=== PATIENT | female | born 1945 | race Two or more races ===

== ENCOUNTER 2017-02-08 14:51 | Inpatient (IN) | payer MEDICARE, OTHER ==
[~2017-02-08] VITALS: Ht 157.5 cm; Wt 77.1 kg
--- NOTE | 2017-02-08 14:58 | NUR ---
PT BIB PA FOR PSYCH EVAL, C/O HI STATING "I WANT TO KILL MY ROOMMATE". DENIES SI. 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 NAD NOTED. RESP EVEN UNLABORED. ABLE TO STAND AND PIVOT FOR TRANSFER FROM GURNEY TO BED. A/OX4. IN ER BED 11.
--- NOTE | 2017-02-08 15:01 | NUR ---
PLACED ON BEDPAN
--- NOTE | 2017-02-08 15:21 | NUR ---
URINE SAMPLE OBTAINED BY IN AND OUT CATH
--- NOTE | 2017-02-08 15:46 | NUR ---
PT RESTING COMFORTABLY, NAD NOTED. ALL NEEDS ATTENDED TO. MD NOTIFIED OF HYPERTENSION.
[2017-02-08 15:48] LABS: BASOPHILS # (AUTO) 0.1 /CMM (0.0-0.2); BASOPHILS % (AUTO) 0.5 % (0.0-2.0); EOSINOPHILS # (AUTO) 0.2 /CMM (0.0-0.7); EOSINOPHILS % (AUTO) 2.1 % (0.0-6.0); HEMATOCRIT 32 % (33-45); HEMOGLOBIN 11.1 g/dL (11.5-14.8); LYMPHOCYTES # (AUTO) 2.1 /CMM (0.8-4.8); LYMPHOCYTES % (AUTO) 19.6 % (20.0-44.0); MEAN CORPUSCULAR HEMOGLOBIN 32 PG (26.0-33.0); MEAN CORPUSCULAR HGB CONC 35 g/dl (31.0-36.0); MEAN CORPUSCULAR VOLUME 90 fL (82-100); MONOCYTES # (AUTO) 0.9 /CMM (0.1-1.30); MONOCYTES % (AUTO) 8.8 % (2.0-12.0); NEUTROPHILS # (AUTO) 7.2 /CMM (1.8-8.9); PLATELET COUNT (AUTO) 205 /CMM (150-450); RDW COEFFICIENT OF VARIATION 12.8 (11.5-15.0); RED BLOOD CELL COUNT(AUTO) 3.51 MIL/uL (4.0-5.2); WHITE BLOOD COUNT (AUTO) 10.5 K/uL (4.3-11.0)
[2017-02-08 15:52] LABS: APPEARANCE,URINE Clear (CLEAR); BILIRUBIN,URINE Negative (NEGATIVE); BLOOD, URINE Small Ery/uL (NEGATIVE); COLOR,URINE Yellow (YELLOW); KETONES,URINE Negative (NEGATIVE); LEUKOCYTE ESTERASE ,URINE Negative (NEGATIVE); NITRITE, URINE Negative (NEGATIVE); PH,URINE 5.5 (5.0-8.0); PROTEIN,URINE 100 mg/dl (NEGATIVE); UGLUCOSE Negative (NEGATIVE); UROBILINOGEN,URINE 0.2 EU/dL (0.2)
[2017-02-08 16:00] LABS: ADD URINE CULTURE NO; BACTERIA,URINE None seen /HPF (None Seen); RBC,URINE 0-2 /HPF (0-2); SQUAMOUS EPITHELIAL CELL,UR Few /HPF (None Seen); WBC,URINE 0-2 /HPF (0-3)
--- NOTE | 2017-02-08 16:02 | NUR ---
REPORT GIVEN TO GABRIELLE HERNÁNDEZ FOR ADMISSION
[2017-02-08 16:04] LABS: ALANINE AMINOTRANSFERASE 23 U/L (12-78); ALBUMIN 3.5 g/dL (3.4-5.0); ALKALINE PHOSPHATASE 75 U/L (46-116); ASPARTATE AMINOTRANSFERASE 19 U/L (15-37); BILIRUBIN,DIRECT 0.1 mg/dL (0.0-0.2); BILIRUBIN,TOTAL 0.2 mg/dL (0.2-1.0); CALCIUM, SERUM 8.6 mg/dL (8.5-10.1); CARBON DIOXIDE 28 mmol/L (21-32); CHLORIDE 97 mmol/L (98-107); CREATININE 1.1 mg/dL (0.6-1.3); GLUCOSE 123 mg/dL (74-106); POTASSIUM 4.9 mmol/L (3.5-5.1); SODIUM SERUM 130 mmol/L (136-145); TOTAL PROTEIN, SERUM 7.1 g/dL (6.4-8.2); UREA NITROGEN, BLOOD 21 mg/dL (7-18)
[2017-02-08 16:05] LABS: ACETAMINOPHEN 0 ug/ml (10-30); ALCOHOL, BLOOD < 3 mg/dL (0-0); SALICYLATE 0.9 mg/dL (2.8-20.0)
--- NOTE | 2017-02-08 16:05 | NUR ---
CALLED NOAH THOMASW FOR PSYCH EVAL ETA 30 MIN.
[2017-02-08 16:07] LABS: CANNABINOID, URINE NEGATIVE (NEGATIVE); PHENCYCLIDINE SCREEN,URINE NEGATIVE (NEGATIVE)
[2017-02-08] MEDS ORDERED: ACETAMINOPHEN ES 500 MG TABLET ONE (16:07)
[2017-02-08] MEDS ORDERED: LISINOPRIL (20MG) 20 MG TABLET PO SCH (16:30)
[2017-02-08] MEDS ORDERED: ACETAMINOPHEN ES 500 MG TABLET PO ONE (16:30)
[2017-02-08] MEDS ORDERED: PANT40TA2 PO (16:31)
[2017-02-08] MEDS ORDERED: ATOR20TA PO (16:31)
[2017-02-08] MEDS ORDERED: DOCU-170 PO (16:31)
[2017-02-08] MEDS ORDERED: LORA-258 PO (16:31)
[2017-02-08] MEDS ORDERED: CHOL400T28 PO (16:31)
[2017-02-08] MEDS ORDERED: LINA5TAB PO (16:31)
[2017-02-08] MEDS ORDERED: OXYB5TAB29 PO (16:31)
[2017-02-08] MEDS ORDERED: GABA300C PO (16:31)
[2017-02-08] MEDS ORDERED: ASPI81TA2 PO (16:31)
[2017-02-08] MEDS ORDERED: LISI-603 PO (16:31)
[2017-02-08] MEDS ORDERED: MEMA5TAB PO (16:31)
[2017-02-08] MEDS ORDERED: DONE5TAB3 PO (16:31)
[2017-02-08] MEDS ORDERED: RISP0.5T2 PO (16:31)
[2017-02-08] MEDS ORDERED: METF500T4 PO (16:31)
[2017-02-08] MEDS ORDERED: MULT1TAB11 PO (16:31)
[2017-02-08] MEDS ORDERED: INSU100V3 SQ (16:31)
--- NOTE | 2017-02-08 17:05 | NUR ---
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
--- NOTE | 2017-02-08 18:12 | NUR ---
PT TRANSPORTED TO [facility]-A IN STABLE CONDITION. ALL NEEDS ATTENDED TO. NAD NOTED.
[2017-02-08 18:20] VITALS: BP 188/76
--- NOTE | 2017-02-08 18:20 | NUR ---
received patient from er, v/s take, bp-188/76,p-73,r-19, o2-98 room air, skin assessment done, picture taken, pt refused sign paperwork, endorsed oncoming nurse for continuation of care.
[2017-02-08] MEDS ORDERED: MAG HYDROX/AL HYDROX/SIMETH 30 ML UDC PO PRN (19:30)
[2017-02-08] MEDS ORDERED: TEMAZEPAM 7.5 MG CAPSULE PO PRN (19:30)
[2017-02-08] MEDS ORDERED: ACETAMINOPHEN 325 MG TABLET PO PRN (19:30)
[2017-02-08] MEDS ORDERED: LORAZEPAM 0.5 MG TABLET PO PRN (19:30)
[2017-02-08] MEDS ORDERED: MAGNESIUM HYDROXIDE 30 ML UDC PO PRN (19:30)
[2017-02-08 19:49] VITALS: BP 160/78
--- NOTE | 2017-02-08 20:00 | NUR ---
NOTIFY DR. HURTADO ABOUT PT. SODIUM LEVEL 130 NO NEW ORDERS RECEIVED
[2017-02-08] MEDS ORDERED: INSULIN REGULAR, HUMAN 100 UNIT/ML 3 ML VIAL SQ PRN (22:00)
[2017-02-08] MEDS ORDERED: MEMANTINE HCL 5 MG TABLET ONE (22:39)
[2017-02-08] MEDS ORDERED: ATORVASTATIN 10 MG TABLET ONE (22:39)
[2017-02-08] MEDS: ATORVASTATIN 10 MG TABLET PO SCH (22:48)
[2017-02-08] MEDS: MEMANTINE HCL 5 MG TABLET PO SCH (22:48)
[2017-02-08 23:00] VITALS: BP 145/78
--- NOTE | 2017-02-08 23:00 | NUR ---
GPS RN NOTES ; LIPITOR 10 MG / NAMENDA 5 MG PO GIVEN CHARGE NURSE MADE AWARE
--- NOTE | 2017-02-09 00:11 | NUR ---
GPS RN ADMITTED NOTES ADMITTED THIS 71 Y/O FEMALE FROM [facility], PT. CAME TO THE UNIT VIA STRETCHER ACCOMPANIED VIA 2 PARAMEDICS PT. IS ON 5150 HOLD FOR DANGER TO OTHERS PER HOLD PT. VERBALLY THREATENED SHE WANTED HURT HER ROOMMATE AND OTHERS, . PT. WAS UNCOOPERATIVE COMBATIVE AGGRESSIVE ANXIOUS , MENTAL HX OF SCHIZOPHRENIA ANXIETY DEMENTIA , AND MEDICAL HX OF HTN DIABETES HYPERLIPIDEMIA GERD , SKIN ASSESSMENT DONE PHOTO TAKEN AND PLACED IN THE CHART , PT. REFUSED TO SIGN CONSENTS FORM, REFUSED TO MRSA SWAB, ENCOURAGED FOR MRSA PT. STILL REFUSED , BOTH MD AWARE OF NEW ADMISSION NEW ORDERS RECEIVED AND CARRIED OUT, REORIENT TO UNIT POLICES AND CONTRABAND CHECKS , ENCOURAGED PT. TO BE VERBALIZE FEELING AND CONCERN TO STAFF , WILL CONTINUE TO MONITOR FOR SAFETY AND BEHAVIOR .
[2017-02-09 07:37] LABS: ALBUMIN 3.1 g/dL (3.4-5.0); BILIRUBIN,TOTAL 0.3 mg/dL (0.2-1.0); CALCIUM, SERUM 8.5 mg/dL (8.5-10.1); CREATININE 1.1 mg/dL (0.6-1.3); POTASSIUM 4.8 mmol/L (3.5-5.1); TOTAL PROTEIN, SERUM 6.4 g/dL (6.4-8.2)
[2017-02-09] MEDS ORDERED: DEXTROSE 50%-WATER 50 ML DISP.SYRIN IV PRN (08:00)
[2017-02-09] MEDS: METFORMIN 500 MG TABLET PO SCH ×2 (08:15→16:30)
[2017-02-09] MEDS: ASPIRIN 81 MG TAB.CHEW PO SCH (08:15)
[2017-02-09] MEDS: MULTIVITAMINS W-MINERALS 1 TAB TABLET PO SCH (08:15)
[2017-02-09] MEDS: LINAGLIPTIN 5 MG TABLET PO SCH (08:15)
[2017-02-09] MEDS: DOCUSATE SODIUM 100 MG CAPSULE PO SCH (08:16)
[2017-02-09] MEDS: PANTOPRAZOLE 40 MG TABLET.DR PO SCH (08:16)
[2017-02-09] MEDS: GABAPENTIN 300 MG CAPSULE PO SCH ×2 (08:16→16:30)
[2017-02-09] MEDS: LISINOPRIL (20MG) 20 MG TABLET PO SCH (08:17)
[2017-02-09 08:20] VITALS: BP 154/84
[2017-02-09] MEDS: OXYBUTYNIN CHLORIDE ER 5 MG TAB PO SCH (09:13)
[2017-02-09] MEDS: CHOLECALCIFEROL (VITAMIN D 3) 400 UNIT TABLET PO SCH (09:13)
[2017-02-09] MEDS: BLOOD SUGAR DIAGNOSTIC 1 EACH STRIP IN SCH ×3 (13:36→21:03)
[2017-02-09 16:00] VITALS: BP 113/60
[2017-02-09] MEDS: INSULIN REGULAR, HUMAN 100 UNIT/ML 3 ML VIAL SQ PRN (17:53)
[2017-02-09 20:44] VITALS: BP 164/84
[2017-02-09] MEDS: ATORVASTATIN 10 MG TABLET PO SCH (21:02)
[2017-02-09] MEDS: risperiDONE 1 MG TABLET PO SCH (21:02)
[2017-02-09] MEDS: MEMANTINE HCL 5 MG TABLET PO SCH (21:02)
[2017-02-10] MEDS: BLOOD SUGAR DIAGNOSTIC 1 EACH STRIP IN SCH ×4 (07:52→21:57)
[2017-02-10] MEDS: INSULIN REGULAR, HUMAN 100 UNIT/ML 3 ML VIAL SQ PRN ×3 (07:53→17:26)
[2017-02-10 08:00] VITALS: BP 119/67
[2017-02-10] MEDS: DOCUSATE SODIUM 100 MG CAPSULE PO SCH (08:28)
[2017-02-10] MEDS: GABAPENTIN 300 MG CAPSULE PO SCH ×2 (08:28→16:05)
[2017-02-10] MEDS: CHOLECALCIFEROL (VITAMIN D 3) 400 UNIT TABLET PO SCH (08:28)
[2017-02-10] MEDS: risperiDONE 1 MG TABLET PO SCH ×2 (08:28→21:25)
[2017-02-10] MEDS: OXYBUTYNIN CHLORIDE ER 5 MG TAB PO SCH (08:28)
[2017-02-10] MEDS: METFORMIN 500 MG TABLET PO SCH ×2 (08:28→16:05)
[2017-02-10] MEDS: LISINOPRIL (20MG) 20 MG TABLET PO SCH (08:29)
[2017-02-10] MEDS: MULTIVITAMINS W-MINERALS 1 TAB TABLET PO SCH (08:29)
[2017-02-10] MEDS: ASPIRIN 81 MG TAB.CHEW PO SCH (08:29)
[2017-02-10] MEDS: LINAGLIPTIN 5 MG TABLET PO SCH (08:29)
[2017-02-10] MEDS: PANTOPRAZOLE 40 MG TABLET.DR PO SCH (08:29)
[2017-02-10 16:00] VITALS: BP 114/60
--- NOTE | 2017-02-10 19:27 | NUR ---
GPS/RN NOTE: PATIENT UP IN THE DINING AREA, AWAKE, ALERT, ORIENTED X2, AMBULATES USING WALKER. NO APPARENT DISTRESS NOTED.
[2017-02-10 19:56] VITALS: BP 163/75
[2017-02-10] MEDS: ATORVASTATIN 10 MG TABLET PO SCH (21:26)
[2017-02-10] MEDS: MEMANTINE HCL 5 MG TABLET PO SCH (21:31)
--- NOTE | 2017-02-10 21:58 | NUR ---
GPS/RN NOTE: ACCUCHECK 115 MG/DL, NO INSULIN DUE AT THIS TIME.
[2017-02-11] MEDS: BLOOD SUGAR DIAGNOSTIC 1 EACH STRIP IN SCH ×4 (07:26→21:11)
[2017-02-11 08:00] VITALS: BP 135/87
[2017-02-11] MEDS: METFORMIN 500 MG TABLET PO SCH ×2 (08:29→16:11)
[2017-02-11] MEDS: DOCUSATE SODIUM 100 MG CAPSULE PO SCH (08:29)
[2017-02-11] MEDS: MULTIVITAMINS W-MINERALS 1 TAB TABLET PO SCH (08:29)
[2017-02-11] MEDS: CHOLECALCIFEROL (VITAMIN D 3) 400 UNIT TABLET PO SCH (08:29)
[2017-02-11] MEDS: PANTOPRAZOLE 40 MG TABLET.DR PO SCH (08:29)
[2017-02-11] MEDS: ASPIRIN 81 MG TAB.CHEW PO SCH (08:29)
[2017-02-11] MEDS: OXYBUTYNIN CHLORIDE ER 5 MG TAB PO SCH (08:29)
[2017-02-11] MEDS: GABAPENTIN 300 MG CAPSULE PO SCH ×2 (08:29→16:11)
[2017-02-11] MEDS: LISINOPRIL (20MG) 20 MG TABLET PO SCH (08:29)
[2017-02-11] MEDS: LINAGLIPTIN 5 MG TABLET PO SCH (08:29)
[2017-02-11] MEDS: risperiDONE 1 MG TABLET PO SCH ×2 (08:30→21:11)
[2017-02-11] MEDS: INSULIN REGULAR, HUMAN 100 UNIT/ML 3 ML VIAL SQ PRN ×2 (12:23→21:12)
[2017-02-11 16:00] VITALS: BP 155/72
--- NOTE | 2017-02-11 16:11 | NUR ---
Initial discharge plan :Pt.is a resident at [facility]; [address] [place] [address]; and will return upon discharge. Pt. will confirm with son, Faisal [phone]. SW will help form safe and proper discharge.
[2017-02-11 19:54] VITALS: BP 156/85
[2017-02-11 20:00] VITALS: BP 156/85
[2017-02-11] MEDS: MEMANTINE HCL 5 MG TABLET PO SCH (21:11)
[2017-02-11] MEDS: ATORVASTATIN 10 MG TABLET PO SCH (21:11)
[2017-02-12 08:00] VITALS: BP 114/52
[2017-02-12 09:00] VITALS: BP 116/62
[2017-02-12] MEDS: DOCUSATE SODIUM 100 MG CAPSULE PO SCH (09:52)
[2017-02-12] MEDS: MULTIVITAMINS W-MINERALS 1 TAB TABLET PO SCH (09:53)
[2017-02-12] MEDS: PANTOPRAZOLE 40 MG TABLET.DR PO SCH (09:53)
[2017-02-12] MEDS: risperiDONE 1 MG TABLET PO SCH ×2 (09:53→22:31)
[2017-02-12] MEDS: OXYBUTYNIN CHLORIDE ER 5 MG TAB PO SCH (09:53)
[2017-02-12] MEDS: METFORMIN 500 MG TABLET PO SCH ×2 (09:53→17:04)
[2017-02-12] MEDS: GABAPENTIN 300 MG CAPSULE PO SCH ×2 (09:53→17:04)
[2017-02-12] MEDS: LINAGLIPTIN 5 MG TABLET PO SCH (09:53)
[2017-02-12] MEDS: BLOOD SUGAR DIAGNOSTIC 1 EACH STRIP IN SCH ×4 (09:54→22:32)
[2017-02-12] MEDS: LISINOPRIL (20MG) 20 MG TABLET PO SCH (09:54)
[2017-02-12] MEDS: ASPIRIN 81 MG TAB.CHEW PO SCH (09:54)
[2017-02-12] MEDS: CHOLECALCIFEROL (VITAMIN D 3) 400 UNIT TABLET PO SCH (09:55)
[2017-02-12] MEDS: INSULIN REGULAR, HUMAN 100 UNIT/ML 3 ML VIAL SQ PRN (12:59)
[2017-02-12 16:00] VITALS: BP 132/60
[2017-02-12 20:00] VITALS: BP 148/68
[2017-02-12] MEDS: MEMANTINE HCL 5 MG TABLET PO SCH (22:31)
[2017-02-12] MEDS: ATORVASTATIN 10 MG TABLET PO SCH (22:31)
[2017-02-13] MEDS: BLOOD SUGAR DIAGNOSTIC 1 EACH STRIP IN SCH ×4 (07:54→22:25)
[2017-02-13] MEDS: PANTOPRAZOLE 40 MG TABLET.DR PO SCH (08:27)
[2017-02-13 08:28] VITALS: BP 146/64
[2017-02-13] MEDS: CHOLECALCIFEROL (VITAMIN D 3) 400 UNIT TABLET PO SCH (08:50)
[2017-02-13] MEDS: GABAPENTIN 300 MG CAPSULE PO SCH ×2 (08:50→16:33)
[2017-02-13] MEDS: ASPIRIN 81 MG TAB.CHEW PO SCH (08:50)
[2017-02-13] MEDS: LISINOPRIL (20MG) 20 MG TABLET PO SCH (08:50)
[2017-02-13] MEDS: METFORMIN 500 MG TABLET PO SCH ×2 (08:50→16:33)
[2017-02-13] MEDS: risperiDONE 1 MG TABLET PO SCH ×2 (08:50→21:08)
[2017-02-13] MEDS: OXYBUTYNIN CHLORIDE ER 5 MG TAB PO SCH (08:50)
[2017-02-13] MEDS: MULTIVITAMINS W-MINERALS 1 TAB TABLET PO SCH (08:50)
[2017-02-13] MEDS: DOCUSATE SODIUM 100 MG CAPSULE PO SCH (08:51)
[2017-02-13] MEDS: LINAGLIPTIN 5 MG TABLET PO SCH (08:51)
[2017-02-13] MEDS: INSULIN REGULAR, HUMAN 100 UNIT/ML 3 ML VIAL SQ PRN (12:25)
[2017-02-13 16:00] VITALS: BP 144/88
[2017-02-13 20:00] VITALS: BP 127/67
[2017-02-13] MEDS: MEMANTINE HCL 5 MG TABLET PO SCH (22:26)
[2017-02-13] MEDS: ATORVASTATIN 10 MG TABLET PO SCH (22:26)
[2017-02-14 08:00] VITALS: BP 144/78
[2017-02-14] MEDS: PANTOPRAZOLE 40 MG TABLET.DR PO SCH (08:00)
[2017-02-14] MEDS: BLOOD SUGAR DIAGNOSTIC 1 EACH STRIP IN SCH ×4 (08:01→21:42)
[2017-02-14] MEDS: CHOLECALCIFEROL (VITAMIN D 3) 400 UNIT TABLET PO SCH (08:06)
[2017-02-14] MEDS: ASPIRIN 81 MG TAB.CHEW PO SCH (08:06)
[2017-02-14] MEDS: GABAPENTIN 300 MG CAPSULE PO SCH ×2 (08:06→16:36)
[2017-02-14] MEDS: OXYBUTYNIN CHLORIDE ER 5 MG TAB PO SCH (08:06)
[2017-02-14] MEDS: MULTIVITAMINS W-MINERALS 1 TAB TABLET PO SCH (08:06)
[2017-02-14] MEDS: METFORMIN 500 MG TABLET PO SCH ×2 (08:06→16:36)
[2017-02-14] MEDS: LINAGLIPTIN 5 MG TABLET PO SCH (08:06)
[2017-02-14] MEDS: risperiDONE 1 MG TABLET PO SCH ×2 (08:06→21:42)
[2017-02-14] MEDS: DOCUSATE SODIUM 100 MG CAPSULE PO SCH (08:06)
[2017-02-14] MEDS: LISINOPRIL (20MG) 20 MG TABLET PO SCH (08:07)
[2017-02-14] MEDS: INSULIN REGULAR, HUMAN 100 UNIT/ML 3 ML VIAL SQ PRN ×2 (12:25→21:41)
[2017-02-14 20:15] VITALS: BP 136/70
[2017-02-14] MEDS: MEMANTINE HCL 5 MG TABLET PO SCH (21:42)
[2017-02-14] MEDS: ATORVASTATIN 10 MG TABLET PO SCH (21:42)
--- NOTE | 2017-02-15 00:10 | NUR ---
Pt's blood sugar level last night was 155 mg/dl & 2 units of regular Insulin was given SC as ordered by .
--- NOTE | 2017-02-15 00:10 | NUR ---
Pt has been blunted & impassive but compliant with care.
[2017-02-15] MEDS: BLOOD SUGAR DIAGNOSTIC 1 EACH STRIP IN SCH ×4 (07:57→21:04)
[2017-02-15] MEDS: risperiDONE 1 MG TABLET PO SCH ×2 (07:58→21:02)
[2017-02-15] MEDS: CHOLECALCIFEROL (VITAMIN D 3) 400 UNIT TABLET PO SCH (07:58)
[2017-02-15] MEDS: METFORMIN 500 MG TABLET PO SCH ×2 (07:58→16:30)
[2017-02-15] MEDS: ASPIRIN 81 MG TAB.CHEW PO SCH (07:58)
[2017-02-15] MEDS: PANTOPRAZOLE 40 MG TABLET.DR PO SCH (07:58)
[2017-02-15] MEDS: MULTIVITAMINS W-MINERALS 1 TAB TABLET PO SCH (07:59)
[2017-02-15] MEDS: LINAGLIPTIN 5 MG TABLET PO SCH (07:59)
[2017-02-15] MEDS: GABAPENTIN 300 MG CAPSULE PO SCH ×2 (07:59→16:30)
[2017-02-15] MEDS: OXYBUTYNIN CHLORIDE ER 5 MG TAB PO SCH (07:59)
[2017-02-15] MEDS: LISINOPRIL (20MG) 20 MG TABLET PO SCH (07:59)
[2017-02-15] MEDS: DOCUSATE SODIUM 100 MG CAPSULE PO SCH (07:59)
[2017-02-15 08:00] VITALS: BP 126/79
[2017-02-15 16:33] VITALS: BP 124/67
[2017-02-15 16:34] VITALS: BP 164/89
[2017-02-15] MEDS: INSULIN REGULAR, HUMAN 100 UNIT/ML 3 ML VIAL SQ PRN (17:32)
[2017-02-15 20:00] VITALS: BP 115/57
[2017-02-15] MEDS: MEMANTINE HCL 5 MG TABLET PO SCH (21:02)
[2017-02-15] MEDS: ATORVASTATIN 10 MG TABLET PO SCH (21:02)
[2017-02-16 08:22] LABS: APPEARANCE,URINE CLOUDY (CLEAR); BILIRUBIN,URINE NEGATIVE (NEGATIVE); BLOOD, URINE 2+ Ery/uL (NEGATIVE); COLOR,URINE YELLOW (YELLOW); KETONES,URINE NEGATIVE (NEGATIVE); LEUKOCYTE ESTERASE ,URINE 3+ (NEGATIVE); NITRITE, URINE NEGATIVE (NEGATIVE); PROTEIN,URINE TRACE mg/dl (NEGATIVE); UGLUCOSE NEGATIVE (NEGATIVE); UROBILINOGEN,URINE 0.2 EU/dL (0.2)
[2017-02-16 08:23] VITALS: BP 127/69
[2017-02-16 08:26] LABS: ADD URINE CULTURE YES; BACTERIA,URINE Many /HPF (None Seen); SQUAMOUS EPITHELIAL CELL,UR Few /HPF (None Seen); WBC,URINE 21-50 /HPF (0-3)
[2017-02-16] MEDS: risperiDONE 1 MG TABLET PO SCH ×2 (08:36→21:32)
[2017-02-16] MEDS: MULTIVITAMINS W-MINERALS 1 TAB TABLET PO SCH (08:36)
[2017-02-16] MEDS: OXYBUTYNIN CHLORIDE ER 5 MG TAB PO SCH (08:36)
[2017-02-16] MEDS: BLOOD SUGAR DIAGNOSTIC 1 EACH STRIP IN SCH ×4 (08:36→22:15)
[2017-02-16] MEDS: CHOLECALCIFEROL (VITAMIN D 3) 400 UNIT TABLET PO SCH (08:36)
[2017-02-16] MEDS: ASPIRIN 81 MG TAB.CHEW PO SCH (08:36)
[2017-02-16] MEDS: METFORMIN 500 MG TABLET PO SCH ×2 (08:36→16:13)
[2017-02-16] MEDS: DOCUSATE SODIUM 100 MG CAPSULE PO SCH (08:37)
[2017-02-16] MEDS: GABAPENTIN 300 MG CAPSULE PO SCH ×2 (08:37→16:13)
[2017-02-16] MEDS: PANTOPRAZOLE 40 MG TABLET.DR PO SCH (08:37)
[2017-02-16] MEDS: LISINOPRIL (20MG) 20 MG TABLET PO SCH (08:37)
[2017-02-16] MEDS: LINAGLIPTIN 5 MG TABLET PO SCH (08:37)
[2017-02-16] MEDS: INSULIN REGULAR, HUMAN 100 UNIT/ML 3 ML VIAL SQ PRN ×2 (12:22→22:18)
[2017-02-16 16:00] VITALS: BP 109/58
--- NOTE | 2017-02-16 19:25 | NUR ---
GPS/RN NOTE: PATIENT UP IN HER BED, AWAKE, ALERT, ORIENTED X2, COMFORTABLE, PLEASANT. NO APPARENT DISTRESS NOTED.
[2017-02-16 20:09] VITALS: BP 127/81
[2017-02-16] MEDS: CEPHALEXIN MONOHYDRATE 500 MG CAPSULE PO SCH (21:32)
[2017-02-16] MEDS: MEMANTINE HCL 5 MG TABLET PO SCH (21:32)
[2017-02-16] MEDS: ATORVASTATIN 10 MG TABLET PO SCH (21:32)
--- NOTE | 2017-02-16 22:23 | NUR ---
GPS/RN NOTE: ACCUCHECK 138 MG/DL, 2 UNITS REG. INSULIN SLIDING SCALE GIVEN SC. HS SNACKS GIVEN
[2017-02-17] MEDS: BLOOD SUGAR DIAGNOSTIC 1 EACH STRIP IN SCH ×4 (07:17→21:36)
[2017-02-17 08:00] VITALS: BP 111/59
[2017-02-17] MEDS: DOCUSATE SODIUM 100 MG CAPSULE PO SCH (08:07)
[2017-02-17] MEDS: CHOLECALCIFEROL (VITAMIN D 3) 400 UNIT TABLET PO SCH (08:08)
[2017-02-17] MEDS: CEPHALEXIN MONOHYDRATE 500 MG CAPSULE PO SCH ×2 (08:08→21:20)
[2017-02-17] MEDS: GABAPENTIN 300 MG CAPSULE PO SCH ×2 (08:08→17:51)
[2017-02-17] MEDS: ASPIRIN 81 MG TAB.CHEW PO SCH (08:08)
[2017-02-17] MEDS: METFORMIN 500 MG TABLET PO SCH ×2 (08:08→17:50)
[2017-02-17] MEDS: MULTIVITAMINS W-MINERALS 1 TAB TABLET PO SCH (08:08)
[2017-02-17] MEDS: PANTOPRAZOLE 40 MG TABLET.DR PO SCH (08:09)
[2017-02-17] MEDS: LISINOPRIL (20MG) 20 MG TABLET PO SCH (08:09)
[2017-02-17] MEDS: OXYBUTYNIN CHLORIDE ER 5 MG TAB PO SCH (08:09)
[2017-02-17] MEDS: LINAGLIPTIN 5 MG TABLET PO SCH (08:09)
[2017-02-17] MEDS: risperiDONE 1 MG TABLET PO SCH ×2 (08:10→21:20)
[2017-02-17 16:00] VITALS: BP 143/85
[2017-02-17] MEDS: MEMANTINE HCL 5 MG TABLET PO SCH (21:20)
[2017-02-17] MEDS: ATORVASTATIN 10 MG TABLET PO SCH (21:21)
[2017-02-17] MEDS: INSULIN REGULAR, HUMAN 100 UNIT/ML 3 ML VIAL SQ PRN (21:38)
[2017-02-17 22:26] VITALS: BP 129/67
[2017-02-18] MEDS: CHOLECALCIFEROL (VITAMIN D 3) 400 UNIT TABLET PO SCH (08:06)
[2017-02-18] MEDS: risperiDONE 1 MG TABLET PO SCH (08:06)
[2017-02-18] MEDS: ASPIRIN 81 MG TAB.CHEW PO SCH (08:06)
[2017-02-18] MEDS: OXYBUTYNIN CHLORIDE ER 5 MG TAB PO SCH (08:06)
[2017-02-18] MEDS: MULTIVITAMINS W-MINERALS 1 TAB TABLET PO SCH (08:06)
[2017-02-18] MEDS: PANTOPRAZOLE 40 MG TABLET.DR PO SCH (08:07)
[2017-02-18] MEDS: GABAPENTIN 300 MG CAPSULE PO SCH (08:07)
[2017-02-18] MEDS: CEPHALEXIN MONOHYDRATE 500 MG CAPSULE PO SCH (08:08)
[2017-02-18] MEDS: LINAGLIPTIN 5 MG TABLET PO SCH (08:09)
[2017-02-18] MEDS: METFORMIN 500 MG TABLET PO SCH (08:09)
[2017-02-18 08:10] VITALS: BP 114/75
[2017-02-18] MEDS: LISINOPRIL (20MG) 20 MG TABLET PO SCH (08:10)
[2017-02-18] MEDS: BLOOD SUGAR DIAGNOSTIC 1 EACH STRIP IN SCH ×2 (08:10→12:43)
[2017-02-18] MEDS: DOCUSATE SODIUM 100 MG CAPSULE PO SCH (08:10)
--- NOTE | 2017-02-18 09:33 | NUR ---
PT. WITH AN ORDER TO D/C HOLD AND D/C TO [facility]. PT. WITHOUT DISTRESS, DENIES SUICIDAL AND HOMICIDAL. TO FOLLOW UP WITH PSYCH AND MEDICAL DOCTORS.
--- NOTE | 2017-02-18 14:00 | NUR ---
PATIENT CLEARED FOR DISCHARGE TO [facility] BY DR ROMERO AND TYREL HENRY. DISCHARGE PAPERWORK SIGNED, MEDICATIONS RECONCILED, BELONGINGS RETURNED AND SIGNED FOR, PACKET AND MEDICATIONS EXPLAINED TO PATIENT, VERBALIZED UNDERSTANDING, PATIENT DENIES SI/HI /AH UPON DISCHARGE, PSYCHIATRIC TREATMENT PLANS MET, REPORT CALLED TO FACILITY SPOKE WITH EMIL, LEFT UNIT CALM, COOPERATIVE WITH EMT AT SIDE. Addendum: 02/18/17 at 1850 by DEAN SERVIN RN REPORT GIVEN TO PATRICIA AT FACILITY.
--- NOTE | 2017-02-19 10:11 | NUR ---
Initial discharge plan :Pt was discharged back to [facility]; [address] [place] [address]; Pt. was calm and cooperative, pleasant, and denied suicidal/homicidal ideations. Pt's son, Faisal [phone] has been notified via voicemail. Discharge paperwork has been signed and instructions were provided to the accepting facility.
== END 2017-02-18 14:00 | DRG 885 ==
LOC: ER 14:53 → GPS 17:58
PROVIDERS: ADMIT Psychiatry & Neurology Psychiatry
DX: F20.0 Paranoid schizophrenia (principal); E87.1 Hypo-osmolality and hyponatremia; N39.0 Urinary tract infection, site not specified; F32.3 Major depressive disorder, single episode, severe with psychotic features; Z87.820 Personal history of traumatic brain injury; K21.9 Gastro-esophageal reflux disease without esophagitis; Z79.899 Other long term (current) drug therapy; E78.5 Hyperlipidemia, unspecified; Z68.31 Body mass index [BMI] 31.0-31.9, adult; E66.9 Obesity, unspecified; D63.8 Anemia in other chronic diseases classified elsewhere; B96.20 Unspecified Escherichia coli [E. coli] as the cause of diseases classified elsewhere; F03.90 Unspecified dementia, unspecified severity, without behavioral disturbance, psychotic disturbance, mood disturbance, and anxiety; I10 Essential (primary) hypertension; R45.850 Homicidal ideations; E11.9 Type 2 diabetes mellitus without complications; Z79.4 Long term (current) use of insulin
CPT/HCPCS: 36415; 80048-TC; 80053-TC; 80076-TC; 80305; 81000-TC; 82962-TC; 85025-TC; 87081-TC; 87086-TC; 87186-TC; 97001-TC; 97116-TC; 97530-TC; A4606; G0480; G6039-TC; J1815; Z7610